=== PATIENT | male | born 1990 | race African-American/Black ===

== ENCOUNTER 2020-02-04 19:07 | Emergency (ER) | payer OTHER, SELFPAY ==
[2020-02-04 19:09] VITALS: BP 110/62; PULSE 94; RESP 18; TEMP 37; O2SAT 99
--- NOTE | 2020-02-04 19:25 | ED.SEIZURE ---
HPI - Seizure General Chief Complaint: Seizure Stated Complaint: seizure Time Seen by Provider: 02/04/20 19:12 Source: patient Mode of arrival: EMS Limitations: altered mental status (post-ictal) History of Present Illness HPI Narrative: Patient is a 29-year-old male who presents to the emergency department with complaint of seizure. Patient had 2 seizures at work today. Episode was witnessed by a coworker. Patient returned to normal in between the 2 seizures. Patient postictal on arrival to the ED. Patient states he takes Keppra twice daily, but cannot remember the dose. Patient states he has not had his evening dose, but did take his morning dose today and states he has not missed any doses recently. He reports his last seizure was in October and that was secondary to missing medication. Patient sees a primary care and neurologist at the [facility]. complaint: seizure Onset (ago): minute(s) Witnessed: Yes - by Other (co-worker) Trauma: No Seizure History: Yes Place: work Possible Precipitating Event: none Associated symptoms: denies other symptoms Treatments prior to arrival: none Related Data Allergies Allergy/AdvReac Type Severity Reaction Status Date / Time No Known Allergies Allergy Verified 02/04/20 19:30 Review of Systems Review of Systems: All systems reviewed & are unremarkable except as noted in HPI and below Constitutional: Constitutional: Denies chills and Denies fever(s) Respiratory: Respiratory: Denies cough and Denies dyspnea Gastrointestinal: Gastrointestinal: Denies diarrhea, Denies nausea and Denies vomiting Neurologic: Denies headache(s) PMFSH Past Medical History Medical History (Updated 02/05/20 @ 01:03 by Mariela Ledbetter MD) Seizure disorder Social History Social History (Updated 02/04/20 @ 19:32 by Mariela Ledbetter MD) Substance use type: marijuana Exam Const: General: cooperative, no acute distress and alert Nutritional Appearance: well nourished Orientation/consciousness: patient oriented x3 Limitations: no limitations HENMT: Mouth: Yes lip normal and Yes moist mucous membranes Eyes: Conjunctivae: conjunctivae normal Pupils: Equal, round and reactive pupils present Resp: Effort & Inspection: normal respiratory effort Auscultation: clear to auscultation bilaterally Cardio: Rate: regular rate Rhythm: regular rhythm GI: GI Palp: Yes Soft to palpation and No Tenderness to palpation present (GI) Auscultation: normal bowel sounds Skin: General skin exam: normal color Neuro: General: patient oriented x3 Cognition (Neuro): normal cognition Speech: normal speech Extrem: General: normal to inspection, full ROM and no clubbing, cyanosis or edema Psych: Mental Status: mental status grossly normal Affect: normal affect Attitude: cooperative Course Course Emergency Course: Patient with brief seizure here in the emergency department that resolved prior to nursing staff being able to bring Ativan to the room. Keppra had just been started when patient had this brief seizure. Patient with unremarkable labs. Vital signs stable. Patient cannot tell me the dose of Keppra he takes. Patient given loading dose of 1000 mg IV. Advised patient the importance of following up with his neurologist at the [facility] for further care. Patient advised to call first thing Friday morning to make follow-up arrangements. Patient observed in the emergency department after receiving medications with no further seizure activity and is ambulatory in the ED with steady gait. Vital Signs Vital signs: Vital Signs Temperature 98.6 F 02/04/20 19:09 Pulse Rate 94 02/04/20 19:09 Respiratory Rate 18 02/04/20 19:09 Blood Pressure 110/62 02/04/20 19:09 Pulse Oximetry 99 02/04/20 19:09 Temperature 98.6 F 02/04/20 19:09 Pulse Rate 66 02/05/20 00:44 Respiratory Rate 18 02/05/20 00:44 Blood Pressure 153/75 H 02/05/20 00:44 Pulse Oximetry 97 02/04/20 23:32
[2020-02-04 19:34] LABS: Basophils Percent Auto 0.5 % (0.2-1.2); Eosinophils Absolute Auto 0.1 K/mm3 (0-0.3); Eosinophils Percent Auto 1.1 % (0-4.4); Hematocrit 45.7 % (42.0-52.0); Hemoglobin 14.4 g/dL (14.0-18.0); Immature Granulocyte Absolute 0.06 K/mm3 (0.00-0.031); Immature Granulocyte Percent A 0.8 % (0-0.5); Lymphocytes Absolute Auto 3.25 K/mm3 (0.9-3.2); Lymphocytes Percent Auto 41.5 % (18.3-44.2); Mean Corpuscular HGB Conc 31.5 g/dl (32-36); Mean Corpuscular Hemoglobin 27.8 pg (26-34); Mean Corpuscular Volume 88.2 fl (80-100); Mean Platelet Volume 10.8 fl (7.4-10.4); Monocytes Absolute Auto 0.6 K/mm3 (0.1-0.6); Neutrophils Absolute Auto 3.8 K/mm3 (1.3-6.7); Neutrophils Percent Auto 49.1 % (45.5-73.1); Platelet Count Result 225 k/mm3 (150-375); Red Blood Count 5.18 M/mm3 (4.6-6.20); Red Cell Distribution Width 12.9 % (11.5-14.5); White Blood Count 7.8 K/mm3 (4.5-10.0)
[2020-02-04] MEDS: levETIRAcetam 1000MG/NACL100ML 1,000 MG/100 ML BAG 400 MG IVPB (19:35)
[2020-02-04 19:47] LABS: Albumin Level 5.1 g/dL (3.5-5.1); Alkaline Phosphatase 54 U/L (38-126); Aspartate Amino Transferase 24 U/L (17-59); Bilirubin,Total 0.3 mg/dL (0.2-1.3); Blood Urea Nitrogen 13 mg/dL (9-20); Calcium 9.3 mg/dL (8.4-10.2); Carbon Dioxide 12 mmol/L (22-30); Chloride 104 mmol/L (98-107); Estimated CRCL calculation 108 ml/min; Estimated Glomerular Filt Rate > 60; Glucose 96 mg/dL (75-110); Potassium 3.8 mmol/L (3.4-5.0); Sodium 140 mmol/L (137-145)
[2020-02-04 19:56] LABS: Alanine Aminotransferase 21 U/L (4-50)
[2020-02-04 23:32] VITALS: BP 141/85; PULSE 54; RESP 18; O2SAT 97
[2020-02-05 00:27] LABS: Add Urine Microscopic? YES; Appearance Urine Clear (Clear); Bacteria Urine Trace /hpf; Bilirubin Urine Negative (Negative); Blood Urine 1+ (Negative); Color Urine Straw (Yellow); Glucose Urine UA Negative (Negative); Ketones Urine Negative (Negative); Leukocyte Esterase Ur Negative LEU/UL (Negative); Mucus Urine Rare /lpf; Nitrate Urine Negative (Negative); Protein Urine 1+ mg/dL (Negative); RBC Urine 0-2 /hpf (0-2); Specific Grav Ur 1.017 (1.001-1.035); Urobilinogen Urine Negative mg/dL (<2.0)
[2020-02-05 00:44] VITALS: BP 153/75; PULSE 66; RESP 18
[2020-02-05 01:19] VITALS: BP 129/77; PULSE 69; RESP 18; O2SAT 99
== END 2020-02-05 01:20 | disposition home or self-care (01) ==
PROVIDERS: Emergency Provider Emergency Medicine
DX: G40.909 Epilepsy, unspecified, not intractable, without status epilepticus (principal)
CPT/HCPCS: 36415; 80053; 81001; 85025; 96374; 99284; J1953; J2060